=== PATIENT | male | born 1950 ===

== ENCOUNTER 2016-09-20 22:08 | Inpatient (IN) | payer MEDICARE, MEDICAID ==
[~2016-09-20 22:08] MED LIST: Lidocaine 2% MPF (5 ml) Inj INJ ONE
[2016-09-20] MEDS ORDERED: DOPamine 400mg/250ml D5W 400 MG/250 ML BAG IV ONE (22:44)
[2016-09-20 22:45] LABS: BASO % 0.3 % (0.0-2.0); EOS # 0.1 K/uL (0.0-0.7); EOS % 0.7 % (0.0-4.0); HEMOGLOBIN 12.2 g/dL (12.0-18.0); LYMPH # 8.4 K/uL (1.0-4.3); LYMPH % 47.3 % (20.0-40.0); MEAN CELL VOLUME 96.2 fl (80.0-94.0); MEAN CORPUSCULAR HEMOGLOBIN 29.6 pg (27.0-31.0); MEAN CORPUSCULAR HGB CONC 30.8 g/dL (33.0-37.0); MEAN PLATELET VOLUME 9.1 fl (7.2-11.7); MONO # 0.7 K/uL (0.0-0.8); MONO % 3.8 % (0.0-10.0); NEUT # 8.5 K/uL (1.8-7.0); NEUT % 47.9 % (50.0-75.0); NRBC % 0.1 % (0.0-0.0); RBC 4.11 Mil/uL (4.40-5.90); RED CELL DISTRIBUTION WIDTH 16.4 % (11.5-14.5); WHITE BLOOD COUNT 17.8 K/uL (4.8-10.8)
[2016-09-20] MEDS ORDERED: Amiodarone 900 MG in Dextrose 5% In Water 500 ML IVPB SCH (22:45)
[2016-09-20 22:51] LABS: CALCIUM 9.5 mg/dL (8.4-10.2)
[2016-09-20 22:54] LABS: INR 1.1 (0.9-1.2); PARTIAL THROMBOPLASTIN TIME 46.2 Seconds (25.6-37.1); PROTHROMBIN TIME 12.5 Seconds (9.8-13.1)
[2016-09-20 23:19] LABS: TROPONIN I 0.915 ng/mL (0.00-0.120)
--- NOTE | 2016-09-20 23:47 | ED PDOC ---
HPI: Cardiac Arrest Time Seen by Provider: 09/20/16 22:31 Chief Complaint (Nursing): Cardiac Arrest Chief Complaint (Provider): Cardiac Arrest History Per: EMS, Family Reason For Code Blue: Full Arrest Circumstances: Brought To ED By EMS Arrest Witnessed By: Family CPR Initiated Prior To MD Arrival?: Yes Down-Time Before ACLS: Unknown Treatment Initiated Prior To MD Arrival: CPR, Intubation, Defibrillation Medications Given Prior To MD Arrival: Epinephrine Additional Complaint(s): 66 y/o male patient presenting to the ED under Cardiac Arrest. Patient's family states that the PT was having chest pain when he suddenly "held his hand to his heart and fell". ACLS arrived on the scene and enroute to the ED, intubated the PT as well as administered 9 epinephrine's, 300mg of Amiodarone and shocked the pt 3 times. Pt was in pulseless electrical activity (PEA) arrest on arrival. Patient has a past medical history of Hypertension and CAD and a past surgical history of CABG. - Initial Findings Mentation: Unresponsive Respirations: None (Assisted) Pulse: Weak Rhythm: PEA ((+)PEA Arrest on Arrival to Ed) Past Medical History Reviewed: Historical Data, Nursing Documentation, Vital Signs Vital Signs: Last Vital Signs Temp Pulse 109 H 09/21/16 00:14 Resp 16 09/21/16 00:14 BP 130/87 09/21/16 00:14 Pulse Ox 99 09/21/16 00:14 - Medical History PMH: CAD, HTN (CABG) - Surgical History Surgical History: CABG - Family History Family History: States: Unknown Family Hx - Allergies Allergies/Adverse Reactions: Allergies Allergy/AdvReac Type Severity Reaction Status Date / Time Unobtainable Allergy Verified 09/20/16 22:27 Review of Systems Review Of Systems: ROS cannot be obtained secondary to pt's inabilty to answer questions. Constitutional: Negative for: Fever, Chills, Sweats Cardiovascular: Positive for: Chest Pain Respiratory: Positive for: Shortness of Breath. Negative for: Cough, Wheezing Gastrointestinal: Negative for: Nausea, Vomiting, Abdominal Pain Neurological: Negative for: Confusion, Seizures, Altered Mental Status Physical Exam - Reviewed Nursing Documentation Reviewed: Yes Vital Signs Reviewed: Yes - Physical Exam Appears: Positive for: In Acute Distress Head Exam: Positive for: ATRAUMATIC, NORMAL INSPECTION, NORMOCEPHALIC Skin: Positive for: Dry, Pallor Eye Exam: Positive for: Other (fixed and dialated pupils ). Negative for: Nystagmus ENT: Positive for: Other (intubation ) Cardiovascular/Chest: Positive for: Other (VFIB) Respiratory: Positive for: Respiratory Distress Neurologic/Psych: Negative for: Alert, Oriented - Laboratory Results Result Diagrams: 09/21/16 00:32 09/21/16 00:32 - ECG ECG: Positive for: Interpreted By Me ECG Rhythm: Positive for: Ventricular Fibrillation - Critical Care Total Time (In Min): 90 Documented Critical Care: Time excludes all time spent performint seperately billable procedures Medical Decision Making Medical Decision Making: Time: 2224 Initial impression: CARDIAC ARREST Initial plan: --TYPE AND SCREEN --EKG --B-TYPE NATRIURETIC PEPTIDE --DRUG SCREEN, URINE --LIPASE --LIPID PANEL --MAGNESIUM --EKG-ED [EDNURTX] --CHEST ONE VIEW XRAY --CORDARONE IV DROP --AMIODARONE 150MG/100ML D5W --DEXTROSE 5% 500 ML --MICA LAMINATING MACHINE FEEDER --MICA LAMINATING MACHINE FEEDER --ADMIT --VENTILATOR --URINALYSIS Patient had numerous episodes of PEA and VFIB while in trauma room , requiring multiple rounds of compressions and several shocks. Emergent IJ central line placed by family practice resident Dr. Will in semi-sterile conditions. 2330: Spoke with Dr. Sofiya Alves M.D. (Trim Installer) at [facility]. Discussed case, agrees PT is not stable for transfer or cardiac catherization. Dr. Alves also agrees Pt is not candidate for cooling due to not having steady pulses, no TPA will be given due to their being more risk than benefits. 2335: Dr. Julito Jiménez M.D. (cardiology) agrees with management and Dr. Gordo Boston ( Pulmonology) and Dr. Al Jackson M.D. hospitalist are all in agreement. The family has been notified and aware of the severity of the situation. Scribe Attestation: Documented by Juliana Burt, acting as a scribe for Kermit Camp M.D. MD Scribe Attestation: All medical record entries made by the Scribe were at my direction and personally dictated by me. I have reviewed the chart and agree that the record accurately reflects my personal performance of the history, physical exam, medical decision making, and the department course for this patient. I have also personally directed, reviewed, and agree with the discharge instructions and disposition. Procedures - Central Line Central Line Lumen: single Central Line Postion: internal jugular (R) - Intubation Time of Intubation: 11:00 (ACLS) Intubation Method: orotracheal Disposition - Clinical Impression Clinical Impression: Cardiac arrest - Disposition Disposition Time: 23:30 Condition: CRITICAL
--- NOTE | 2016-09-21 00:11 | CP.PCM.CON ---
History of Present Illness - History of Present Illness History of Present Illness: CC: Cardiac arrest History via ER staff, from family, and from chart HPI: This is a 66 y/o male with HTN, CAD (s/p CABG) and DM2 who is brought in with cardiac arrest in the field. Per report, patient c/o chest pain and had cardiac arrest witnessed by . EMS arrived and started CPR @ 2115. Patient was intubated, received epinephrine x 9, amiodarone 300 mg x 1, NS bolus, and was defibrillated x 3. Spontaneous circulation was regained and patient was brought into ED. Patient had 4 further episodes of cardiac arrest and was resuscitated in the ER. On first one he received bicarbonate and calcium chloride, on following arrests he was defibrillated for V-fib. He was started on an amiodarone gtt. He received multiple rounds of epinephrine as well. No history of recent illness per family. ROS: Cannot obtain 2/2 mental status MHx: HTN, CAD, DM2 SHx: CABG Allergies: unknown currently Medications: unknown, pending Family Hx: Cannot obtain 2/2 mental status Social Hx: Lives with family, no sig EtOH or tobacco noticed Surrogate Dec Mkr: , info on chart Review of Systems - Review of Systems Systems not reviewed;Unavailable: Acuity of Condition Past Patient History - CARDIAC Hx Hypertension: Yes (CABG) Meds Allergies/Adverse Reactions: Allergies Allergy/AdvReac Type Severity Reaction Status Date / Time Unobtainable Allergy Verified 09/20/16 22:27 - Medications Medications: Current Medications Aspirin (Aspirin Supp) 300 mg LA DAILY ANNABELLE Atorvastatin Calcium (Lipitor) 40 mg PO HS ANNABLELE Amiodarone HCl 900 mg/ (Dextrose) 518 mls @ 34.53 mls/hr IVPB .Q15H1M ANNABELLE; 1 MG /MIN PRN Reason: Protocol Sodium Chloride (Sodium Chloride 0.9%) 1,000 mls @ 75 mls/hr IV .[id number] ANNABELLE Stop: 09/21/16 13:34 Norepinephrine Bitartrate 4 mg (/ Dextrose) 254 mls @ 9.52 mls/hr IV .Q24H ANNABELLE ; 2.5 MCG/MIN PRN Reason: Protocol Insulin Human Lispro (Humalog) 0 units SC Q6H ANNABELLE PRN Reason: Protocol Physical Exam - Constitutional Additional comments: On ventilatory, unresponsive - Head Exam Head Exam: ATRAUMATIC, NORMOCEPHALIC - Eye Exam Pupil Exam: Fixed - ENT Exam ENT Exam: Mucous Membranes Moist - Respiratory Exam Respiratory Exam: Rhonchi Additional comments: coarse sounds, on vent - Cardiovascular Exam Cardiovascular Exam: REGULAR RHYTHM, +S1, +S2 - GI/Abdominal Exam GI & Abdominal Exam: Normal Bowel Sounds, Soft - Neurological Exam Additional comments: unresponsive, no spontaneous movement - Skin Skin Exam: Dry, Warm Results - Vital Signs Recent Vital Signs: Last Vital Signs Temp Pulse 76 09/20/16 22:09 Resp BP Pulse Ox - Labs Result Diagrams: 09/20/16 22:38 09/20/16 22:38 - EKG Data EKG Interpreted by: Myself - EKG Data EKG comments: One EKG does appear to show STEMI; multiple later EKGs show an indeterminate wide complex rhythm, likely V tach - Imaging and Cardiology Chest x-ray Status: Image reviewed by me (ET tube in place, RIJ line in place; midline sternotomy wires noted; poor insp effort) Assessment & Plan (1) Cardiac arrest Assessment and Plan: 66 y/o male with cardiac arrest. 1) CAD/HTN/Cardiac arrest -Admit ICU -Telemetry, AM EKG -No hypothermia for now per Dr. Alves given inconsistent ROSC and recurrent arrests -Serial troponins; repeat CBC and BMP now; if no sign of acute bleeding and if troponins rising, consider heparin gtt -Will give ASA and statin for now; BP has been low, may not tolerate beta charity at this time -Continue Amiodarone gtt -Cardiology consult ordered for AM 2) DM2 -- q6h accuchecks, SSI 3) DVT PPx -- SCDs only for now Status: Acute (2) DM2 (diabetes mellitus, type 2) Status: Acute (3) DVT prophylaxis Status: Acute
[2016-09-21] MEDS ORDERED: Insulin Lispro (humaLOG) 100 Units/ml Inj SC SCH (00:15)
[2016-09-21] MEDS ORDERED: Sodium Chloride 0.9% 1,000 ML IV SCH (00:15)
[2016-09-21] MEDS ORDERED: Chlorhexidine Gluconate 1 APPL/PKT TP ONE (00:33)
[2016-09-21 00:40] LABS: BASO # 0.1 K/uL (0.0-0.2); BASO % 0.6 % (0.0-2.0); EOS # 0.1 K/uL (0.0-0.7); EOS % 0.8 % (0.0-4.0); HEMOGLOBIN 12.9 g/dL (12.0-18.0); LYMPH # 4.4 K/uL (1.0-4.3); LYMPH % 30.3 % (20.0-40.0); MEAN CELL VOLUME 92.9 fl (80.0-94.0); MEAN CORPUSCULAR HEMOGLOBIN 29.1 pg (27.0-31.0); MEAN CORPUSCULAR HGB CONC 31.3 g/dL (33.0-37.0); MEAN PLATELET VOLUME 8.7 fl (7.2-11.7); MONO # 0.2 K/uL (0.0-0.8); MONO % 1.1 % (0.0-10.0); NEUT # 9.9 K/uL (1.8-7.0); NEUT % 67.2 % (50.0-75.0); RBC 4.42 Mil/uL (4.40-5.90); WHITE BLOOD COUNT 14.7 K/uL (4.8-10.8)
[2016-09-21 00:50] LABS: SQUAMOUS EPITHIAL 1 /hpf (0-5); URINE BILIRUBIN NEGATIVE (NEGATIVE); URINE BLOOD LARGE (NEGATIVE); URINE CLARITY CLOUDY (Clear); URINE COLOR YELLOW (YELLOW); URINE GLUCOSE (UA) >=500 mg/dL (Normal); URINE LEUKOCYTE ESTERASE TRACE Leu/uL (Negative); URINE NITRATE NEGATIVE (NEGATIVE); URINE PROTEIN 100 mg/dL (NEGATIVE); URINE UROBILINOGEN 0.2-1.0 mg/dL (0.2-1.0)
[2016-09-21 00:52] LABS: ALB/GLOB RATIO 1.3 (1.0-2.1)
[2016-09-21 00:53] LABS: MAGNESIUM 2.1 MG/DL (1.6-2.3)
[2016-09-21 01:06] LABS: ABG ALLEN TEST YES; ARTERIAL BLOOD GAS HCO3 14.2 mmol/L (21-28); ARTERIAL BLOOD GAS HEMOGLOBIN 13.7 g/dL (11.7-17.4); ARTERIAL BLOOD GAS O2 CAPACITY 18.8 mL/dL (16-24); ARTERIAL BLOOD GAS O2 CONTENT 17.4 ML/dL (15-23); ARTERIAL BLOOD GAS O2 SAT 92.5 % (95-98); ARTERIAL BLOOD GAS PCO2 41 mm/Hg (35-45); ARTERIAL BLOOD GAS PH 7.16 (7.35-7.45); ARTERIAL BLOOD GAS PO2 70 mm/Hg (80-100); ARTERIAL BLOOD GAS TCO2 15.9 mmol/L (22-28)
[2016-09-21] MEDS ORDERED: Sodium Bicarbonate 8.4% 150 MEQ in Dextrose 5%/0.9% NS 1,000 ML IV SCH (01:15)
[2016-09-21] MEDS: Insulin Lispro (humaLOG) 100 Units/ml Inj SC SCH ×2 (01:15→06:14)
[2016-09-21 01:33] LABS: BARBITURATES, UR NEGATIVE (NEGATIVE)
[2016-09-21 01:34] LABS: BENZODIAZEPINES, UR NEGATIVE (NEGATIVE); OPIATES, UR NEGATIVE (NEGATIVE); PHENCYCLIDINE, UR NEGATIVE (NEGATIVE)
[2016-09-21] MEDS ORDERED: Propofol 10 mg/ml 1,000 MG/100 ML VIAL ONE (05:05)
[2016-09-21] MEDS ORDERED: Propofol 10 mg/ml 1,000 MG/100 ML VIAL IV SCH (05:15)
[2016-09-21 05:45] LABS: ABG ALLEN TEST YES; ARTERIAL BLOOD GAS HCO3 14.6 mmol/L (21-28); ARTERIAL BLOOD GAS HEMOGLOBIN 14.2 g/dL (11.7-17.4); ARTERIAL BLOOD GAS O2 CAPACITY 19.6 mL/dL (16-24); ARTERIAL BLOOD GAS O2 CONTENT 19.4 ML/dL (15-23); ARTERIAL BLOOD GAS PCO2 34 mm/Hg (35-45); ARTERIAL BLOOD GAS PH 7.21 (7.35-7.45); ARTERIAL BLOOD GAS PO2 109 mm/Hg (80-100); ARTERIAL BLOOD GAS TCO2 14.6 mmol/L (22-28)
[2016-09-21 06:25] VITALS: TEMP 98.9
[2016-09-21 07:32] LABS: ALB/GLOB RATIO 1.3 (1.0-2.1); ALBUMIN 3.2 g/dL (3.5-5.0); CALCIUM 7.9 mg/dL (8.4-10.2)
[2016-09-21 07:43] LABS: BASO % 0.2 % (0.0-2.0); HEMOGLOBIN 13.6 g/dL (12.0-18.0); LYMPH # 0.7 K/uL (1.0-4.3); LYMPH % 4.2 % (20.0-40.0); MEAN CELL VOLUME 92.7 fl (80.0-94.0); MEAN CORPUSCULAR HEMOGLOBIN 29.1 pg (27.0-31.0); MEAN CORPUSCULAR HGB CONC 31.4 g/dL (33.0-37.0); MEAN PLATELET VOLUME 9.1 fl (7.2-11.7); MONO # 0.3 K/uL (0.0-0.8); MONO % 2.1 % (0.0-10.0); NEUT # 15.4 K/uL (1.8-7.0); NEUT % 93.5 % (50.0-75.0); NRBC % 0.2 % (0.0-0.0); PLATELET COUNT 252 K/uL (130-400); RBC 4.68 Mil/uL (4.40-5.90); RED CELL DISTRIBUTION WIDTH 16.4 % (11.5-14.5); WHITE BLOOD COUNT 16.5 K/uL (4.8-10.8)
[2016-09-21] MEDS ORDERED: Calcium Chloride 1000 mg/10 ml Syringe IV ONE (09:14)
[2016-09-21] MEDS ORDERED: Sodium Bicarbonate 7.5% (0.9 MEQ/ML) 50ML INJ IV ONE (09:14)
--- NOTE | 2016-09-21 09:37 | RAD ---
PROCEDURE: CHEST RADIOGRAPH, 1 VIEW HISTORY: intubated COMPARISON: 09/20/2016 FINDINGS: LUNGS: Limited examination. Overlying cardiac monitoring pad and electrodes. Also subcutaneous emphysema seen overlying left madeline thorax, left greater than right. Diffuse bilateral pulmonary opacity. No focal consolidation. Clear. PLEURA: No pleural effusion or pneumothorax identified. CARDIOVASCULAR: Normal heart size. ET tube, NG tube and right IJ central venous catheter noted. NG tube new since prior examination. OSSEOUS STRUCTURES: No significant abnormalities. VISUALIZED UPPER ABDOMEN: Normal. OTHER FINDINGS: None. IMPRESSION: Limited examination. Diffuse bilateral pulmonary opacity. No focal consolidation. New nasogastric tube. ET tube and IJ central venous catheter are unchanged. Left thoracic subcutaneous emphysema extending into left side of neck.
--- NOTE | 2016-09-21 10:04 | RAD ---
PROCEDURE: CHEST RADIOGRAPH, 1 VIEW HISTORY: CA COMPARISON: None available. FINDINGS: LUNGS: Diffuse bilateral pulmonary alveolar opacity, nonspecific. This may be infectious or inflammatory or may reflect pulmonary edema. PLEURA: No pleural effusion or pneumothorax. CARDIOVASCULAR: Right internal jugular central venous catheter. CABG. Normal heart size. OSSEOUS STRUCTURES: No significant abnormalities. VISUALIZED UPPER ABDOMEN: Normal. OTHER FINDINGS: None. IMPRESSION: Diffuse bilateral pulmonary alveolar opacity. Nonspecific. No pleural effusion.
--- NOTE | 2016-09-21 10:24 | RAD ---
HISTORY: r/o pneumothorax COMPARISON: 09/21/2016 at 4:13 a.m. FINDINGS: LUNGS: Diffuse bilateral extensive pulmonary opacity, worsened since prior examination. PLEURA: Small left pneumothorax. Extensive bilateral subcutaneous emphysema over thorax and neck. Lucency along right lateral aspect of mediastinum raises possibility of pneumomediastinum as well. CARDIOVASCULAR: Normal heart size. ET tube unchanged. Right IJ central venous catheter. OSSEOUS STRUCTURES: No significant abnormalities. VISUALIZED UPPER ABDOMEN: Normal. OTHER FINDINGS: None. IMPRESSION: Extensive bilateral pulmonary opacity. New small left pneumothorax. Extensive subcutaneous emphysema bilaterally over chest and neck. ET tube. Right IJ central venous catheter, unchanged. Lucency along right lateral aspect of heart and mediastinum raises the possibility of pneumomediastinum. Followup advised.
--- NOTE | 2016-09-21 10:28 | RAD ---
PROCEDURE: CHEST RADIOGRAPH, 1 VIEW HISTORY: CT insertion COMPARISON: 09/21/2016 at 7:03 a.m. FINDINGS: LUNGS: Grossly technically limited examination. Extensive bilateral pulmonary opacity, right greater than left. New left chest tube. Possible small residual left apical pneumothorax. No evidence of pneumomediastinum. Extensive subcutaneous emphysema over chest and neck bilaterally. PLEURA: As above CARDIOVASCULAR: ET tube and NG tube unchanged. Right IJ central venous catheter unchanged. OSSEOUS STRUCTURES: No significant abnormalities. VISUALIZED UPPER ABDOMEN: Normal. OTHER FINDINGS: None. IMPRESSION: New left chest tube. Possible small residual left apical pneumothorax. Follow-up advised. Extensive bilateral pulmonary opacity, right greater than left.
[2016-09-21 10:35] VITALS: RESP 31
[2016-09-21 10:36] VITALS: BP 141/99; PULSE 114; O2SAT 87
[2016-09-21 10:37] LABS: BANDS 6 % (0-2); LYMPHOCYTE 6 % (20-50); MONOCYTE 1 % (0-10); NEUTROPHIL 86 % (42-75); REACTIVE LYMPHOCYTES 1 % (0-0); TOTAL CELLS COUNTED 100
[2016-09-21 10:39] LABS: ANISOCYTOSIS SLIGHT; OVALOCYTES SLIGHT; PLATELET ESTIMATE NORMAL (NORMAL); POIKILOCYTOSIS SLIGHT; TEARDROP CELLS SLIGHT; TOXIC GRANULATION PRESENT
--- NOTE | 2016-09-21 12:22 | PN ---
DATE: 09/21/2016 The patient in ICU, bed 433. The patient is seen and evaluated at the bedside. Events since admission reviewed with overnight hospitalist, Dr. Levy. A 66-year-old male with a history significant for diabetes mellitus type 2, hypertension, coronary artery disease, status post coronary artery bypass graft surgery, sustained a cardiac arrest at home, witnessed by , resuscitated by EMS after epinephrine x 9, amiodarone 300 mg x 1, normal saline bolus, defibrillated x 3, intubated and sustained spontaneous circulation, brought to Emergency Room. In ER, the patient lost pulses and resuscitated after 4 attempts, started on amiodarone drip, admitted to ICU. In ICU, patient was noted by the nurse with subcutaneous crepitus and swelling of the face. The patient was noted to have left pneumothorax. Chest tube insertion was done by vice president quality improvement, connected to the under suction. The patient subsequently developed asystole. Cardiopulmonary resuscitation was initiated. ACLS protocol followed. Sustained peripheral pulse with a blood pressure, maintained on Levophed drip and IV fluid. PAST MEDICAL HISTORY: As noted above. SURGICAL HISTORY: Coronary artery bypass graft surgery. CURRENT MEDICATIONS: Included amiodarone 900 mg running at 34.53 mL per hour, aspirin 300 mg daily, Lipitor 40 mg p.o. at bedtime, norepinephrine 4 mg in 250 mL at 9.52 mL. LABORATORY DATA: WBC 16.5, hemoglobin 13.6, hematocrit 43.4, platelet count 252. PT 12.5, INR 1.1, PTT 46.2. ABG: pH 7.21, pCO2 34, pO2 109 on saturation 99 on FiO2 100%. SMA-7: Sodium 142, potassium 3.5, chloride 110, CO2 18, blood urea nitrogen is 23, creatinine 2.5, glucose 224. Troponin 0.91, increased to 203, total protein 5.7, albumin 3.2. Urinalysis: RBC 423. Microscopic WBC 48. Toxicology screen negative. IMPRESSION: A 66-year-old male status post cardiac arrest, resuscitated in the field, subsequent resuscitation x 4 in the ER, status post multiple defibrillation attempts, admitted to ICU, developed pneumothorax, status post chest tube insertion, expanded lung with less subcutaneous emphysema, subsequently developed asystole, resuscitation attempted, initially regained pulse. Subsequently, lost pulse again. After an hour of resuscitation attempts were held, patient was pronounced . Family is informed. Case was reported to medical biller/coder. body is__ released. Ben Delgado MD cc: [id number] TT: 09/21/2016 12:22:11 Confirmation # [id number] Dictation # [id number] harry SCHWARTZ
--- NOTE | 2016-09-21 15:48 | CP.PCM.CON ---
History of Present Illness - History of Present Illness History of Present Illness: General Surgery Consult note for Dr. Blue Consulted for: L pneumothorax Patient is a 66M with PMH of CABG who presented to the ED after a cardiac arrest in the field. Several resuscitation were performed in the field and the ED and patient was admitted to the ICU. Patient developed marked subcutaneous emphysema and elevated peak pressures on the ventilator and attending was concerned for pneumothorax. A superior L pneumothorax was discovered on CXR and we placed a chest tube in the left chest without complications. Shortly after chest tube placement patient was noted to be without a pulse. CPR and medical resuscitation were initiated for an extensive period of time and sinus rhythm was re-attained. However, shortly afterwards, code blue was again called due to loss of pulse and patient was resuscitated for an extended period of time but sustained pulse was not attained and patient was pronounced shortly afterwards Review of Systems - Review of Systems Systems not reviewed;Unavailable: Altered Mental Status Past Patient History - Past Medical History & Family History Past Medical History?: Yes - Past Social History Smoking Status: Unknown If Ever Smoked - CARDIAC Hx Hypertension: Yes (CABG) - ENDOCRINE/METABOLIC Hx Endocrine Disorders: Yes Hx Diabetes Mellitus Type 2: Yes - PSYCHIATRIC Hx Substance Use: No - SURGICAL HISTORY Hx Coronary Artery Bypass Graft: Yes Meds Allergies/Adverse Reactions: Allergies Allergy/AdvReac Type Severity Reaction Status Date / Time Unobtainable Allergy Verified 09/20/16 22:27 Physical Exam - Constitutional Appears: In Acute Distress - Head Exam Head Exam: ATRAUMATIC, NORMOCEPHALIC - Eye Exam Eye Exam: Normal appearance - ENT Exam ENT Exam: Mucous Membranes Moist - Respiratory Exam Respiratory Exam: absent: Wheezes, NORMAL BREATHING PATTERN Additional comments: on mechanical ventillation - Cardiovascular Exam Cardiovascular Exam: absent: RRR - GI/Abdominal Exam GI & Abdominal Exam: Soft. absent: Distended - Extremities Exam Extremities exam: Negative for: calf tenderness, pedal edema, pedal pulses present - Neurological Exam Neurological exam: Altered - Psychiatric Exam Additional comments: unable to attain d/t AMS - Skin Skin Exam: Normal Color Results - Vital Signs Recent Vital Signs: Last Vital Signs Temp 98.9 F 09/21/16 04:00 Pulse 114 H 09/21/16 10:35 Resp 31 H 09/21/16 10:35 BP 141/99 H 09/21/16 10:35 Pulse Ox 87 L 09/21/16 10:35 - Labs Result Diagrams: 09/21/16 05:25 09/21/16 05:25 Labs: Laboratory Results - last 24 hr 09/21/16 09/21/16 09/21/16 00:32 00:32 00:45 WBC 14.7 H RBC 4.42 Hgb 12.9 Hct 41.0 MCV 92.9 D MCH 29.1 MCHC 31.3 L RDW 16.0 H Plt Count 215 MPV 8.7 Neut % (Auto) 67.2 Lymph % (Auto) 30.3 Yancey % (Auto) 1.1 Eos % (Auto) 0.8 Baso % (Auto) 0.6 Neut # 9.9 H Lymph # 4.4 H Yancey # 0.2 Eos # 0.1 Baso # 0.1 Neutrophils % (Manual) Band Neutrophils % Lymphocytes % (Manual) Reactive Lymphs % Monocytes % (Manual) Toxic Granulation Platelet Estimate Poikilocytosis (manual Anisocytosis (manual) Tear Drop Cells Ovalocytes pCO2 pO2 HCO3 ABG pH ABG Total CO2 ABG O2 Saturation ABG O2 Content ABG Base Excess ABG Hemoglobin ABG Carboxyhemoglobin POC ABG HHb (Measured) ABG Methemoglobin ABG O2 Capacity Jeffrey Test A-a O2 Difference Hgb O2 Saturation Vent Mode Mechanical Rate FiO2 Tidal Volume PEEP Crit Value Called To Crit Value Called By Crit Value Read Back Blood Gas Notified Time Sodium 138 Potassium 3.7 Chloride 108 H Carbon Dioxide 16 L Anion Gap 18 BUN 19 Creatinine 1.6 H Est GFR ( Amer) 52 Est GFR (Non-Af Amer) 43 POC Glucose (mg/dL) 313 H Random Glucose 287 H Calcium 8.0 L Total Bilirubin 0.4 AST 675 H ALT 508 H Alkaline Phosphatase 70 Troponin I Total Protein 5.4 L Albumin 3.0 L Globulin 2.4 Albumin/Globulin Ratio 1.3 C. difficile Ag & Toxin Blood Type Confirm 09/21/16 09/21/16 09/21/16 01:00 01:58 05:25 WBC RBC Hgb Hct MCV MCH MCHC RDW Plt Count MPV Neut % (Auto) Lymph % (Auto) Yancey % (Auto) Eos % (Auto) Baso % (Auto) Neut # Lymph # Yancey # Eos # Baso # Neutrophils % (Manual) Band Neutrophils % Lymphocytes % (Manual) Reactive Lymphs % Monocytes % (Manual) Toxic Granulation Platelet Estimate Poikilocytosis (manual Anisocytosis (manual) Tear Drop Cells Ovalocytes pCO2 41 pO2 70 L HCO3 14.2 L ABG pH 7.16 L* ABG Total CO2 15.9 L ABG O2 Saturation 92.5 L ABG O2 Content 17.4 ABG Base Excess -13.5 L ABG Hemoglobin 13.7 ABG Carboxyhemoglobin 1.3 POC ABG HHb (Measured) 7.3 H ABG Methemoglobin 1.3 ABG O2 Capacity 18.8 Jeffrey Test Yes A-a O2 Difference 592.0 Hgb O2 Saturation 90.0 L Vent Mode A/c Mechanical Rate 14 FiO2 100.0 Tidal Volume 500 PEEP 5 Crit Value Called To Manuel alegre md Crit Value Called By 333 Crit Value Read Back Y Blood Gas Notified Time 105 Sodium 142 Potassium 3.5 L Chloride 110 H Carbon Dioxide 18 L Anion Gap 18 BUN 23 H Creatinine 2.5 H Est GFR ( Amer) 31 Est GFR (Non-Af Amer) 26 POC Glucose (mg/dL) Random Glucose 186 H Calcium 7.9 L Total Bilirubin 0.5 AST 1172 H ALT 520 H Alkaline Phosphatase 52 Troponin I 203.0000 H* Total Protein 5.7 L Albumin 3.2 L Globulin 2.4 Albumin/Globulin Ratio 1.3 C. difficile Ag & Toxin Blood Type Confirm A POSITIVE 09/21/16 09/21/16 09/21/16 05:25 05:37 05:40 WBC 16.5 H RBC 4.68 Hgb 13.6 Hct 43.4 MCV 92.7 MCH 29.1 MCHC 31.4 L RDW 16.4 H Plt Count 252 MPV 9.1 Neut % (Auto) 93.5 H Lymph % (Auto) 4.2 L Yancey % (Auto) 2.1 Eos % (Auto) 0.0 Baso % (Auto) 0.2 Neut # 15.4 H Lymph # 0.7 L Yancey # 0.3 Eos # 0.0 Baso # 0.0 Neutrophils % (Manual) 86 H Band Neutrophils % 6 H Lymphocytes % (Manual) 6 L Reactive Lymphs % 1 H Monocytes % (Manual) 1 Toxic Granulation Present Platelet Estimate Normal Poikilocytosis (manual Slight Anisocytosis (manual) Slight Tear Drop Cells Slight Ovalocytes Slight pCO2 34 L pO2 109 H HCO3 14.6 L ABG pH 7.21 L ABG Total CO2 14.6 L ABG O2 Saturation 99.0 H ABG O2 Content 19.4 ABG Base Excess -13.2 L ABG Hemoglobin 14.2 ABG Carboxyhemoglobin 1.2 POC ABG HHb (Measured) 1.0 ABG Methemoglobin 1.3 ABG O2 Capacity 19.6 Jeffrey Test Yes A-a O2 Difference 562.0 Hgb O2 Saturation 96.4 Vent Mode Prvc ac Mechanical Rate 14 FiO2 100.0 Tidal Volume 500 PEEP 5 Crit Value Called To Crit Value Called By Crit Value Read Back Blood Gas Notified Time Sodium Potassium Chloride Carbon Dioxide Anion Gap BUN Creatinine Est GFR ( Amer) Est GFR (Non-Af Amer) POC Glucose (mg/dL) 224 H Random Glucose Calcium Total Bilirubin AST ALT Alkaline Phosphatase Troponin I Total Protein Albumin Globulin Albumin/Globulin Ratio C. difficile Ag & Toxin Blood Type Confirm 09/21/16 10:00 WBC RBC Hgb Hct MCV MCH MCHC RDW Plt Count MPV Neut % (Auto) Lymph % (Auto) Yancey % (Auto) Eos % (Auto) Baso % (Auto) Neut # Lymph # Yancey # Eos # Baso # Neutrophils % (Manual) Band Neutrophils % Lymphocytes % (Manual) Reactive Lymphs % Monocytes % (Manual) Toxic Granulation Platelet Estimate Poikilocytosis (manual Anisocytosis (manual) Tear Drop Cells Ovalocytes pCO2 pO2 HCO3 ABG pH ABG Total CO2 ABG O2 Saturation ABG O2 Content ABG Base Excess ABG Hemoglobin ABG Carboxyhemoglobin POC ABG HHb (Measured) ABG Methemoglobin ABG O2 Capacity Jeffrey Test A-a O2 Difference Hgb O2 Saturation Vent Mode Mechanical Rate FiO2 Tidal Volume PEEP Crit Value Called To Crit Value Called By Crit Value Read Back Blood Gas Notified Time Sodium Potassium Chloride Carbon Dioxide Anion Gap BUN Creatinine Est GFR ( Amer) Est GFR (Non-Af Amer) POC Glucose (mg/dL) Random Glucose Calcium Total Bilirubin AST ALT Alkaline Phosphatase Troponin I Total Protein Albumin Globulin Albumin/Globulin Ratio C. difficile Ag & Toxin Negative Blood Type Confirm Assessment & Plan - Assessment and Plan (Free Text) Assessment: Placed chest tube in the left chest and placed on suction, assisted with code blue resuscitation attempts, patient was unable to be resuscitated to sustained spontaneous cardiac function and patient was pronounced Chest Tube Insertion - Chest Tube Placement Indication: Pneumothorax Consent Obtained: Implied D/T Emergency Situation Procedural Sedation: None Procedure Description: Prepped W/Betadine, Sterile Drape Applied Incision Completed And Tube Inserted At: L Anterior axillary line level of rib 4 Post Insertion Procedure(s): Tube Sutured To Chest Wall, CXR Completed To Confirm Placement, Tube Connected To Suction, No Air Leak Noted
--- NOTE | 2016-09-21 16:55 | CARD ---
APPROVED REPORT EKG Measurement Heart [id number] <Conclusion> Wide QRS rhythm with premature ventricular complexes or fusion complexes Right bundle branch block Left posterior fascicular block Bifascicular block Abnormal ECG
--- NOTE | 2016-09-21 16:58 | CARD ---
APPROVED REPORT EKG Measurement Heart [id number] <Conclusion> Wide QRS rhythm Right bundle branch block Cannot rule out Inferior infarct, age undetermined Abnormal ECG
--- NOTE | 2016-09-22 06:22 | CARD ---
APPROVED REPORT EKG Measurement Heart [id number] <Conclusion> Sinus bradycardia with 1st degree AV block Right bundle branch block Left posterior fascicular block Bifascicular block Septal infarct, age undetermined Inferior injury pattern ACUTE NH / STEMI Consider right ventricular involvement in acute inferior infarct Abnormal ECG
--- NOTE | 2016-09-24 08:54 | CARD ---
APPROVED REPORT EKG Measurement Heart [id number] <Conclusion> Undetermined rhythm Right bundle branch block Inferior infarct, age undetermined Abnormal ECG
--- NOTE | 2016-09-24 08:54 | CARD ---
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
--- NOTE | 2016-09-24 08:54 | CARD ---
APPROVED REPORT EKG Measurement Heart [id number] GA 186P3 [id number] <Conclusion> Normal sinus rhythm Right bundle branch block Left posterior fascicular block Bifascicular block T wave abnormality, consider inferior ischemia Abnormal ECG
--- NOTE | 2016-09-24 08:54 | CARD ---
APPROVED REPORT EKG Measurement Heart [id number] CA 134P61 [id number] <Conclusion> Undetermined rhythm Right bundle branch block Inferior infarct, age undetermined Anterolateral infarct, age undetermined Abnormal ECG
== END 2016-09-21 09:15 | DRG 208 ==
LOC: H.ER 22:08 → H.ERHOLD 23:20 → H.ICU/CCU 23:30
PROVIDERS: ADMIT Internal Medicine Pulmonary Disease; ATTEND Internal Medicine Pulmonary Disease
PROC: 5A1935Z Respiratory Ventilation, Less than 24 Consecutive Hours (ICD-10-PCS; 2016-09-20)
PROC: 5A12012 Performance of Cardiac Output, Single, Manual (ICD-10-PCS; 2016-09-20)
PROC: 05HM33Z Insertion of Infusion Device into Right Internal Jugular Vein, Percutaneous Approach (ICD-10-PCS; 2016-09-20)
PROC: 0W9B30Z Drainage of Left Pleural Cavity with Drainage Device, Percutaneous Approach (ICD-10-PCS; principal; 2016-09-21)
PROC: 4A143B0 Monitoring of Venous Pressure, Central, Percutaneous Approach (ICD-10-PCS; 2016-09-21)
DX: J93.83 Other pneumothorax (principal); I49.01 Ventricular fibrillation; J98.2 Interstitial emphysema; I46.9 Cardiac arrest, cause unspecified; I10 Essential (primary) hypertension; I25.10 Atherosclerotic heart disease of native coronary artery without angina pectoris; E11.9 Type 2 diabetes mellitus without complications; Z95.1 Presence of aortocoronary bypass graft